=== PATIENT | male | born 1935 | race Caucasian/White ===

== ENCOUNTER 2017-07-03 12:44 | Emergency (ER) | payer MEDICARE, BC ==
[~2017-07-03] VITALS: Ht 175.3 cm; Wt 117.9 kg
[~2017-07-03 12:44] MED LIST: ACET325 PO; ALBU90OI61 INH; AMLO10 PO; ASPI81EC PO; Antivert25 MG PO; BENAML10/2 PO; BENZ100A PO; BUDE6HFA; BUDE6HFA INH; BUPR150ER PO; CARI350 PO; CARV6.25 PO; Carisoprodol350 MG PO; DOXA2 PO; FERR325 PO; FEXPSEER PO; FINA5 PO; FINACEA 15%; FLUSAL1005 INH; FURO40 PO; Finacea50 GM TP; HYDACE5 PO; HYDR1TAB94 PO; Iron Supplemen325 MG PO; LEVO750 PO; LISI5 PO; METF500C PO; METO25ER PO; METO50ER PO; NAPR500 PO; Norvasc2.5 MG PO; OMEP20ER PO; OXYGEN INH; Omeprazole20 M1 PO; PRAVASTATIN SOD10 MG PO; PSEU120ER PO; SOMA350 MG PO; SUCR1 PO; TAMS.4ER PO; TRAM50 PO; TRAZ100 PO; VERAMYST; VERAMYST IH
[2017-07-03] MEDS ORDERED: LOSARTAN-HCTZ1 EAC2 PO (13:00)
[2017-07-03 13:48] LABS: Source, Urine Voided
[2017-07-03 13:49] LABS: BASOPHILS ABSOLUTE AUTO 0.05 K/mm3 (0.00-0.23); BASOPHILS PERCENT AUTO 0 % (0-2); EOSINOPHILS ABSOLUTE AUTO 0.06 K/mm3 (0.00-0.68); EOSINOPHILS PERCENT AUTO 0 % (0-6); Hematocrit 43.4 % (37.0-53.0); Hemoglobin 14.3 g/dL (13.5-17.5); IMMATURE GRAN ABSOLUTE AUTO 0.06 K/mm3 (0.00-0.10); IMMATURE GRAN PERCENT AUTO 0 % (0-1); LYMPHOCYTES ABSOLUTE AUTO 2.25 K/mm3 (0.84-5.20); LYMPHOCYTES PERCENT AUTO 16 % (21-46); MONOCYTES ABSOLUTE AUTO 1.16 K/mm3 (0.16-1.47); MONOCYTES PERCENT AUTO 8 % (4-13); Mean Corpuscular HGB 31.4 pg (26.0-34.0); Mean Corpuscular HGB Conc 32.9 g/dL (31.5-36.5); Mean Corpuscular Volume 95 fL (80-100); Mean Platelet Volume 9.1 fL (9.1-12.4); NEUTROPHILS ABSOLUTE AUTO 10.47 K/mm3 (1.96-9.15); NEUTROPHILS PERCENT AUTO 75 % (41-73); Platelet Count 228 K/mm3 (150-400); RDW Coefficient Variation 15.3 % (11.7-14.2); RDW Standard Deviation 54.3 fL (35.1-46.3); Red Blood Cell Count 4.55 M/mm3 (4.30-5.90); White Blood Cell Count 14.05 K/mm3 (4.00-11.30)
[2017-07-03 13:52] LABS: Bilirubin, Urine Neg (Neg); Blood, Urine 1+ (Neg); Glucose Qualitative, Urine Neg (Neg); Ketones, Urine Neg (Neg); Leukocyte Esterase, Urine Neg (Neg); Nitrite, Urine Neg (Neg); Protein, Urine Neg (Neg); Urobilinogen, Urine NORM (Normal)
[2017-07-03 14:00] LABS: Appearance, Urine Clear (Clear); Color, Urine Yellow (P-Yellow)
[2017-07-03 14:01] LABS: Bacteria Few /hpf; Hyaline Casts 0-2 /lpf (0-2); Squamous Epithelial Cells Few /hpf (Few); White Blood Cells, Urine 0-2 /hpf (0-5)
[2017-07-03 14:04] LABS: Alanine Aminotransfer (ALT/SGP 33 U/L (12-78); Albumin, Blood 3.7 g/dL (3.4-5.0); Alk Phos 106 U/L (50-136); Anion Gap 5 mmol/L (6-16); Aspartate Aminotrans (AST/SGOT 21 U/L (12-37); Blood Urea Nitrogen 13 mg/dL (8-24); Bun/Creatinine Ratio 15.3 (12.0-20.0); CO2, Blood 29 mmol/L (21-32); Calcium, Blood 8.4 mg/dL (8.5-10.1); Chloride, Blood 103 mmol/L (98-108); Creatinine, Blood 0.85 mg/dL (0.60-1.20); Globulin, Blood 3.6 g/dL (2.2-4.0); Glomerular Filtration Rate >60 (60-); Glucose, Blood 102 mg/dL (70-99); Potassium, Blood 3.8 mmol/L (3.5-5.5); Sodium, Blood 137 mmol/L (136-145); Total Protein, Blood 7.3 g/dL (6.4-8.2)
[2017-07-03] MEDS ORDERED: Norco 5-325 Ta1 EACH PO (16:06)
[2017-07-03] MEDS ORDERED: BENZ100A PO (16:08)
[2017-12-12] MEDS ORDERED: FINA5 (12:00)
[2017-12-12] MEDS ORDERED: FURO20 (12:12)
[2017-12-12] MEDS ORDERED: POTCHL10ER (12:13)
== END 2017-07-03 16:43 | disposition home or self-care (01) ==
LOC: ER 12:44
PROVIDERS: Physician Assistant
DX: R10.12 Left upper quadrant pain (principal); R10.32 Left lower quadrant pain; Z87.891 Personal history of nicotine dependence; Z96.659 Presence of unspecified artificial knee joint; Z88.5 Allergy status to narcotic agent; Z79.899 Other long term (current) drug therapy
CPT/HCPCS: 36415; 71045; 74176; 80053; 81000; 81001; 83690; 85025; 96374; 96375; 99284; J1170; J1200; J2405

== ENCOUNTER → 2018-09-19 | Outpatient (CLI) | payer MEDICARE ==
[~2018-09-19] MED LIST changes: +FINA5; +FURO20; +LOSARTAN-HCTZ1 EAC2 PO; +Norco 5-325 Ta1 EACH PO; +POTCHL10ER
== END | disposition home or self-care (01) ==
LOC: LAB SHORT 08:12 → PLD 08:12
DX: D48.5 Neoplasm of uncertain behavior of skin (principal)
CPT/HCPCS: 88305

== ENCOUNTER → 2019-03-14 | Outpatient (CLI) | payer MEDICARE | END | disposition home or self-care (01) | LOC: PLD 14:22 → LAB SHORT 14:22 | DX: D04.62 Carcinoma in situ of skin of left upper limb, including shoulder (principal) | CPT/HCPCS: 88305 ==

== ENCOUNTER → 2021-06-24 | Outpatient (CLI) | payer MEDICARE | LOC: LAB SHORT 12:45 | DX: D48.5 Neoplasm of uncertain behavior of skin (principal); D22.5 Melanocytic nevi of trunk | CPT/HCPCS: 88305 ==

== ENCOUNTER → 2021-11-04 | Outpatient (CLI) | payer MEDICARE ==
[2021-11-04 14:15] LABS: BASOPHILS ABSOLUTE AUTO 0.02 K/mm3 (0.00-0.23); BASOPHILS PERCENT AUTO 0 % (0-2); EOSINOPHILS ABSOLUTE AUTO 0.05 K/mm3 (0.00-0.68); EOSINOPHILS PERCENT AUTO 1 % (0-6); Hematocrit 33.5 % (37.0-53.0); Hemoglobin 11.3 g/dL (13.5-17.5); IMMATURE GRAN ABSOLUTE AUTO 0.01 K/mm3 (0.00-0.10); IMMATURE GRAN PERCENT AUTO 0 % (0-1); LYMPHOCYTES ABSOLUTE AUTO 1.55 K/mm3 (0.84-5.20); LYMPHOCYTES PERCENT AUTO 32 % (21-46); MONOCYTES ABSOLUTE AUTO 0.37 K/mm3 (0.16-1.47); MONOCYTES PERCENT AUTO 8 % (4-13); Mean Corpuscular HGB 34.6 pg (26.0-34.0); Mean Corpuscular HGB Conc 33.7 g/dL (31.5-36.5); Mean Corpuscular Volume 102 fL (80-100); Mean Platelet Volume 10.5 fL (9.1-12.4); NEUTROPHILS ABSOLUTE AUTO 2.88 K/mm3 (1.96-9.15); NEUTROPHILS PERCENT AUTO 59 % (41-73); Platelet Count 183 K/mm3 (150-400); RDW Coefficient Variation 15.1 % (11.7-14.2); RDW Standard Deviation 57.4 fL (35.1-46.3); Red Blood Cell Count 3.27 M/mm3 (4.30-5.90); White Blood Cell Count 4.88 K/mm3 (4.00-11.30)
[2021-11-04 14:29] LABS: Albumin, Blood 3.7 g/dL (3.4-5.0); Albumin/Globulin Ratio 1.3 (0.8-1.8); Bilirubin, Total 1.2 mg/dL (0.1-1.0); Bun/Creatinine Ratio 16.7 (12.0-20.0); Creatinine, Blood 1.5 mg/dL (0.60-1.20); Globulin, Blood 2.8 g/dL (2.2-4.0); Potassium, Blood 3.1 mmol/L (3.5-5.5); Total Protein, Blood 6.5 g/dL (6.4-8.2)
== END | disposition home or self-care (01) ==
LOC: LAB 14:07 → LAB SHORT 14:07
PROVIDERS: Internal Medicine
DX: I95.1 Orthostatic hypotension (principal)
CPT/HCPCS: 80053; 85025

== ENCOUNTER 2022-01-25 10:54 | Emergency (ER) | payer MEDICARE ==
[~2022-01-25] VITALS: Ht 175.3 cm; Wt 127.0 kg
== END 2022-01-25 12:26 | disposition home or self-care (01) ==
LOC: ER 10:54
DX: S50.312A Abrasion of left elbow, initial encounter (principal); S80.212A Abrasion, left knee, initial encounter; W18.30XA Fall on same level, unspecified, initial encounter; Z88.5 Allergy status to narcotic agent; Z88.8 Allergy status to other drugs, medicaments and biological substances; R73.03 Prediabetes; I11.0 Hypertensive heart disease with heart failure; I50.9 Heart failure, unspecified; E78.5 Hyperlipidemia, unspecified; J44.9 Chronic obstructive pulmonary disease, unspecified; N40.0 Benign prostatic hyperplasia without lower urinary tract symptoms; E66.9 Obesity, unspecified; Z68.41 Body mass index [BMI] 40.0-44.9, adult; Z87.891 Personal history of nicotine dependence
CPT/HCPCS: 99283

== ENCOUNTER → 2022-04-24 | Outpatient (CLI) | payer MEDICARE ==
[2022-04-27 10:02] LABS: Stool Occult Bld Immuno 1 Negative (NEGATIVE); Stool Occult Bld Immuno 2 Negative (NEGATIVE)
== END ==
LOC: LAB SHORT 07:30 → LAB 07:30
PROVIDERS: Internal Medicine Gastroenterology
DX: D64.9 Anemia, unspecified (principal)
CPT/HCPCS: 82274

== ENCOUNTER 2022-06-21 10:22 | Day surgery (SDC) | payer MEDICARE ==
[~2022-06-21] VITALS: Ht 172.7 cm; Wt 128.4 kg
--- NOTE | 2022-06-21 13:27 | NUR ---
06/21/22 1327 MICHELLE LEWIS PT WAS BROUGHT INTO [facility] FOR ROUTINE ADMISSION. HE IS AMBULATORY WITH A CANE BUT APPEARS TO GRAB FOR MAHER, FURNITURE, ETC TO STABILIZE HIMSELF. HE PAUSES MULTIPLE TIMES TO CATCH HIS BREATH AND MOVES SLOWLY. PT VISIBLY HAS SOILED HIMSELF AND HAS TWO STREAMS OF URINE RUNNING DOWN THE FRONT OF HIS SHORTS. PT WAS ESCORTED TO RESTROOM AND WAS OFFERED ASSISTANCE CHANGING INTO PRE OP GOWN. THIS RN ALSO OFFERED TO GET PT'S FOR HIM TO ASSIST IN CHANGING. PT DENIED NEEDING HELP OR ASSISTANCE. PT THEN CALLED THIS RN INTO THE BATHROOM TWICE FOR HELP HE NEEDED HELP WITH THE GOWNS AND THEN NEEDED ASSISTANCE WIPING HIS BOTTOM. THIS RN ENTERED AND PT HAD PAPERTOWLS STUCK BETWEEN BUTT CHEEKS AND STOOL (BOTH DRIED AND WET) ON HIS BOTTOM AND UPPER THIGHS. PT THEN REPORTED HE NEEDED TO URINATE AND WAS LEFT TO USE THE TOILET. HE THEN VOIDED ON THE BATHROOM FLOOR AND AGAIN NEEDED HELP CLEANING UP. PT WAS ESCORTED TO PRE OP AREA WHERE IT WAS NOTED HIS SHORTS HAD DRIED STOOL WELL IN THEM. ROUTINE PRE OP ADMISSION AND THIS RN BROUGHT CONCERNS OF CARE TO SURGEON AND ANESTHESIA PROVIDER. WHILE IN PRE OP AREA, PT HAD TWO ADDITIONAL ACCIDENTS AND LOSS OF BLADDER. PT WAS UNABLE TO NOTIFY STAFF WITH ADEQUATE TIME TO PROVIDE CARE OR AFTER IT ALREADY HAPPENED. PT'S WAS BROUGHT TO THE PRE OP AREA AND ASKED IF THE PATIENT CARES FOR HIMSELF AT HOME - THE REPLIED "HE TAKES CARE OF HIMSELF, I DONT NEED TO". I ATTEMPTED TO FURTHER QUESTIONS IF HE NEEDS HELP POST OPERATIVELY IF SHE WOULD BE ABLE TO AND SHE SAID NO, HE CAN TAKE CARE OF HIMSELF. BOTH PT AND DENY ISSUE WITH CARING FOR THEMSELVES AT HOME. PT DENIES HOLDING ON TO MAHER WHEN AMBULATING. THIS RN DID SEE PATIENT REACHING FOR FURNITURE OR MAHER TO STABILIZE AND THERE ARE CONCERNS WITH STABILITY AND LEANING FORWARD TO GRAB THINGS WHICH WOULD RESULT IN A FALL. THERE ARE ALSO CONCERNS THAT PATIENT WOULD BE ABLE TO KEEP POST OP SITE CLEAN IF HE HAS ISSUES WITH [facility] ALREADY. THIS RN ESCORTED PATIENT TO CAR AND VISUALLY SAW A DIRTY CAR AND THAT WAS IN PAJAMAS AND SLIPPERS, FINGERNAILS DIRTY, HAIR UNCOMBED.
== END 2022-06-21 13:30 | disposition home or self-care (01) ==
LOC: ORSCSDS 10:22
DX: G56.02 Carpal tunnel syndrome, left upper limb (principal); Z53.9 Procedure and treatment not carried out, unspecified reason